=== PATIENT | female | born 1985 | race Caucasian/White ===

== ENCOUNTER → 2017-10-11 14:12 | Outpatient (CLI) | payer OTHER, SELFPAY ==
[2017-10-11 16:03] LABS: Absolute Lymphocyte Count 2.61 X10^3/ul (0.83-4.51); Absolute Neutrophil Count 4.5 X10^3/uL (2.0-7.7); Basophil# 0.02 X10^3/uL; Basophil% 0.3 % (0-1); Eosinophil# 0.08 X10^3/uL; Eosinophils% 1.1 % (0-5); Hemoglobin 12.8 g/dl (12.0-15.0); Lymphocyte # 2.61 X10^3/ul (4.0); Lymphocyte % 34.6 % (19-41); Mean Corp Hgb Conc 33.7 g/gl (32-36); Mean Corpuscular Hgb 29.7 pg (27.0-32.0); Mean Corpuscular Volume 88.2 fL (81-99); Monocyte# 0.38 X10^3/uL; Neutrophil # 4.45 X10^3/uL (2.7-7.7); Neutrophil % 58.9 % (47-70); Platelet Count 254 K/mm3 (150-450); RBC Distribution Width CV 12.1 % (11.6-14.6); RBC Distribution Width SD 38.8 fl (35.1-43.9); Red Blood Count 4.31 M/mm3 (4.2-5.4); White Blood Count 7.6 K/mm3 (4.4-11.0)
[2017-10-11 16:05] LABS: POSITIVE COUNT NO; POSITIVE DIFFERENTIAL NO; POSITIVE MORPHOLOGY NO
[2017-10-11 16:33] LABS: ALB/GLOB Ratio 1.2 RATIO (0.9-2.4); AST(SGOT) 9 U/L (15-37); Alanine Aminotransfer ALT/SGPT 21 U/L (13-56); Albumin, Serum 4.1 g/dL (3.2-5.0); Alkaline Phosphatase 78 U/L (45-117); Anion Gap 9 (5-15); BUN 21 mg/dL (7-18); BUN/Creat Ratio 25.3 RATIO (10-20); Calcium,Total 9.4 mg/dL (8.5-10.1); Chloride 108 mmol/L (98-107); Creatinine, Serum 0.83 mg/dL (0.55-1.02); EST Glomerular Filtration Rate 84 mL/min (>60); Est Glom Filt Rate - Afr Amer 102 mL/min (>60); Globulin 3.3 g/dL (2.2-4.2); Glucose 86 mg/dL (74-106); Iron 84 ug/dL (50-170); Potassium 3.8 mmol/L (3.5-5.1); Protein, Total 7.4 g/dL (6.4-8.2); Sodium Level 143 mmol/L (136-145); Thyroid Stim Hormone (TSH) 1.23 uIU/mL (0.358-3.74)
[2017-10-11 16:39] LABS: Erythrocyte Sedimentation Rate 9 mm/hr (0-20)
[2017-10-12 09:48] LABS: Vitamin B12 329 pg/mL (211-911); Vitamin D,25 Hydroxy 21.1 ng/mL (29.95-100.01)
== END ==
PROVIDERS: Family Provider Family Medicine; PCP Family Medicine; Visit Provider Family Medicine
DX: R53.83 Other fatigue (principal)
CPT/HCPCS: 36415; 80053; 82306; 82607; 83540; 84443; 85025; 85652

== ENCOUNTER → 2018-01-30 16:27 | Outpatient (CLI) | payer OTHER, SELFPAY ==
--- NOTE | 2018-01-30 16:35 | RAD_ITS ---
STUDY: X-RAY - CERVICAL SPINE REASON FOR EXAM: Female, 32 years old. Neck pain TECHNIQUE: 4 view(s) of the cervical spine were obtained. COMPARISON: None FINDINGS: Normal anterior atlantoaxial articulation. Normal odontoid process. Decreased cervical lordosis possibly due to muscle spasm or positioning artifact. Normal vertebral bodies and endplates. Normal disc space heights. Normal visualized intervertebral neuroforamina. The soft tissue structures are unremarkable. RAD/Cerv Spine 4 or 5 Views IMPRESSION: Decreased cervical lordosis otherwise normal x-ray examination of the visualized cervical spine. Electronically Signed: Charly Moreau MD at 22:50 EDT , Service support ,
== END ==
PROVIDERS: Family Provider Family Medicine; PCP Family Medicine; Visit Provider Family Medicine
DX: M54.2 Cervicalgia (principal)
CPT/HCPCS: 72050

== ENCOUNTER → 2018-08-23 13:21 | Outpatient (CLI) | payer OTHER, SELFPAY ==
[2018-08-23 14:44] LABS: Erythrocyte Sedimentation Rate 5 mm/hr (0-20)
[2018-08-23 14:47] LABS: Hematocrit 38.4 % (37-47); Hemoglobin 12.6 g/dl (12.0-15.0); Mean Corp Hgb Conc 32.8 g/gl (32-36); Mean Corpuscular Hgb 29.1 pg (27.0-32.0); Mean Corpuscular Volume 88.7 fL (81-99); Mean Platelet Vol. 10.9 fl (6.2-12.0); Platelet Count 292 K/mm3 (150-450); RBC Distribution Width CV 12.4 % (11.6-14.6); RBC Distribution Width SD 39.7 fl (35.1-43.9); Red Blood Count 4.33 M/mm3 (4.2-5.4); Scan Indicated on CBC? Y/N NO; White Blood Count 6.3 K/mm3 (4.4-11.0)
[2018-08-23 15:15] LABS: Vitamin B12 350 pg/mL (211-911)
[2018-08-23 15:18] LABS: ALB/GLOB Ratio 1.3 RATIO (0.9-2.4); Albumin, Serum 4.2 g/dL (3.2-5.0); BUN 17 mg/dL (7-18); BUN/Creat Ratio 21.2 RATIO (10-20); EST Glomerular Filtration Rate 87 mL/min (>60); Est Glom Filt Rate - Afr Amer 105 mL/min (>60); Globulin 3.2 g/dL (2.2-4.2); Glucose 89 mg/dL (74-106); Protein, Total 7.4 g/dL (6.4-8.2)
[2018-08-23 15:19] LABS: AST(SGOT) 18 U/L (15-37); Alanine Aminotransfer ALT/SGPT 33 U/L (13-56); Alkaline Phosphatase 98 U/L (45-117); Anion Gap 9 (5-15); CPK Total, Creatine Kinase 344 U/L (26-192); CRP 6.92 mg/L (0.0-3.0); Calcium,Total 8.9 mg/dL (8.5-10.1); Chloride 106 mmol/L (98-107); Ferritin 152 ng/mL (8-252); Iron 93 ug/dL (50-170); Magnesium 2.2 mg/dL (1.6-2.6); Potassium 3.8 mmol/L (3.5-5.1); Rheumatoid Factor < 10.0 IU/mL (<15); Sodium Level 142 mmol/L (136-145); Thyroid Stim Hormone (TSH) 0.99 uIU/mL (0.358-3.74)
[2018-08-25 11:29] LABS: ANTINUCLEAR ANTIBODIES DIRECT Negative (Negative)
[2018-08-28 16:41] LABS: Aldolase 6.9 U/L (3.3-10.3)
--- OUTSIDE RECORDS SUMMARY | 2018-10-28 03:19 | XMS RPT_ITS ---
:1985 Author Organization OH[facility] Care Team Providers Name Role Phone ARTI KEYS, DR. DRAPER Attending Unavailable ARTI KEYS, DR. DRAPER Referring Unavailable CHARLY WU, DR. JOLLY Primary Care Unavailable Peewee Chi Attending Unavailable Peewee Chi Referring Unavailable Peewee Chi Primary Care Unavailable Peewee Chi Attending Unavailable Peewee Chi Referring Unavailable Peewee Chi Primary Care Unavailable Peewee Chi Attending Unavailable Peewee Chi Primary Care Unavailable Peewee Chi Attending Unavailable Peewee Chi Referring Unavailable Peewee Cih Primary Care Unavailable PROBLEMS PROBLEMS DATE TYPE CONDITION / CODE ATTENDING STATUS SOURCE 01/30/2018 Unknown M54.2 - Arti Active [place] [facility] / Peewee [facility] M54.2(ICD-10) Hospital Repository PROCEDURES PROCEDURES No Procedure Records FoundRESULTS RESULTS BRAIN WITHOUT Observed: 08/29/2018 Status: F Source: [place] CONTRAST 6:45 AM [facility] REPOSITORY [facility] Imaging Services [address] [place] [address] Brain without Contrast MR#: [id number] Acct: [id number] Name: ORIN GARZA Santa Rep #: [id number] : 1985 F 33 From: Annika Staton PCP: Peewee Chi MD Status: REG CLI Study: Brain without Contrast Date of Exam: 08/29/18 Exam# [id number] Ordering Dr: Vahe Chi MD STUDY: MRI BRAIN WITHOUT CONTRAST REASON FOR EXAM: Female, 33 years old. dizziness, ARM NUMBNESS, OCCULAR MIGRAINES, NERVE PAIN, MEMORY LOSS TECHNIQUE: Standardized multiplanar fat and water weighted pulse sequences were obtained. COMPARISON: Mar 31 2011 FINDINGS: Normal size of the ventricles and extra-axial spaces for the patient's age. Normal white matter tracts of the supratentorial brain. Normal bilateral basal ganglia. Normal thalami. There is no extra-axial fluid accumulation. Normal flow voids within the major intracranial circulation suggesting patency by spin echo criteria. Normal sella turcica, pituitary gland, infundibular stalk, optic chiasm and hypothalamus. Normal tectal plate and pineal gland. Normal midbrain, michael and medulla. Normal cerebellum. Normal basal cisterns. Normal bilateral temporal bones. Normal bilateral internal auditory canals. No demonstrated orbital abnormality, within the constraints of a routine brain study. Normal visualized paranasal sinuses. Normal calvarium and skull base. Normal visualized soft tissue structures. Normal visualized upper cervical spine. MRI/Brain without Contrast IMPRESSION: Normal unenhanced MRI of the brain. Electronically Signed: Annika Staton MD at 8:07 EST Tel , Service support , CC: Peewee Chi MD Handbag Stitcher: Signed ERYTHROCYTE SED RATE Collected: 08/23/2018 Status: F Source: [place] 1:26 PM [facility] REPOSITORY TYPE CODE TESTS RESULT OUT OF RANGE REFERENCE UNITS LAB L102.0000 0-20 mm/hr Normal SED RATE 5 Performed By: #### L101.9900, L100.0500, L503.0105, L506.1000, L500.4050, L501.3620, L501.5200, L501.9520, L503.6150, L503.6550, L505.7010 #### [facility] [place], [address] #### L3100.5475, L3100.7000 #### [facility] (refer to report for specific site) refer to report for address and phone number CBC-COMPLETE BLOOD CNT Collected: 08/23/2018 Status: F Source: [place] NO DIFF 1:26 PM [facility] REPOSITORY TYPE CODE TESTS RESULT OUT OF RANGE REFERENCE UNITS LAB L100.1000 4.4-11.0 K/mm3 Normal WBC 6.3 LAB L100.1200 4.2-5.4 M/mm3 Normal RBC 4.33 LAB L100.1300 12.0-15.0 g/dl Normal HGB 12.6 LAB L100.1400 37-47 % Normal HCT 38.4 LAB L100.1500 81-99 fL Normal MCV 88.7 LAB L100.1600 27.0-32.0 pg Normal MCH 29.1 LAB L100.1700 32-36 g/gl Normal MCHC 32.8 LAB L100.1810 11.6-14.6 % Normal RDW CV 12.4 LAB L100.1820 35.1-43.9 fl Normal RDW SD 39.7 LAB L100.1900 150-450 K/mm3 Normal PLT 292 LAB L100.2000 6.2-12.0 fl Normal MPV 10.9 Performed By: #### L101.9900, L100.0500, L503.0105, L506.1000, L500.4050, L501.3620, L501.5200, L501.9520, L503.6150, L503.6550, L505.7010 #### [facility] [address] [facility] [place], [place], [id number] #### L3100.5475, L3100.7000 #### [facility] (refer to report for specific site) refer to report for address and phone number VITAMIN B12 Collected: 08/23/2018 Status: F Source: [place] 1:26 PM [facility] REPOSITORY TYPE CODE TESTS RESULT OUT OF RANGE REFERENCE UNITS LAB L503.0105 211-911 pg/mL Normal Vitamin B12 350 Performed By: #### L101.9900, L100.0500, L503.0105, L506.1000, L500.4050, L501.3620, L501.5200, L501.9520, L503.6150, L503.6550, L505.7010 #### [facility] [address] [facility] [place], [place], [address] #### L3100.5475, L3100.7000 #### [facility] (refer to report for specific site) refer to report for address and phone number VITAMIN D,25 HYDROXY Collected: 08/23/2018 Status: F Source: [place] 1:26 PM [facility] REPOSITORY TYPE CODE TESTS RESULT OUT OF REFERENCE UNITS RANGE LAB L506.1000 29.95-100.01 ng/mL Low Vitamin D 17.0 25-OH Result Comment: Vitamin D 25(OH) Status Range Deficiency <20 ng/mL (50nmol/L) Insuffciency 20 - 30 ng/mL (50 - 75 nmol/L) Sufficiency 30 - 100 ng/mL (75 - 250 nmol/L) Toxicity >100 ng/mL (>250 nmol/L) Performed By: #### L101.9900, L100.0500, L503.0105, L506.1000, L500.4050, L501.3620, L501.5200, L501.9520, L503.6150, L503.6550, L505.7010 #### [facility] [address] [place], [address] #### L3100.5475, L3100.7000 #### [facility] (refer to report for specific site) refer to report for address and phone number COMPREHENSIVE METABOLIC Collected: 08/23/2018 Status: F Source: [facility] 1:26 PM [facility] REPOSITORY TYPE CODE TESTS RESULT OUT OF RANGE REFERENCE UNITS LAB L501.0100 74-106 mg/dL Normal GLU 89 Result Comment: Please note revised GLUCOSE reference range effective 2017. LAB L501.1000 7-18 mg/dL Normal BUN 17 LAB L501.1100 0.55-1.02 mg/dL Normal CREAT,SERUM 0.80 Result Comment: The validity of the calculated GFR AND GFRAA in patients over 70 years has not been determined. Clinical correlation is essential. LAB L501.1110 >60 mL/min Normal EST GFR 87 Result Comment: Non- GFR Calc LAB L501.1115 >60 mL/min Normal EST GFR - AA 105 Result Comment: GFR Calc LAB L501.1300 10-20 RATIO High BUN/CRE 21.2 LAB L501.1500 6.4-8.2 g/dL T Normal PROT 7.4 LAB L501.1800 3.2-5.0 g/dL Normal ALB 4.2 LAB L501.1950 2.2-4.2 g/dL Normal GLOB 3.2 LAB L501.2000 0.9-2.4 RATIO Normal A/G 1.3 LAB L501.2200 8.5-10.1 mg/dL CA Normal 8.9 LAB L501.4100 15-37 U/L Normal AST 18 LAB L501.4305 45-117 U/L Normal ALK P 98 LAB L501.4405 13-56 U/L Normal ALT 33 LAB L501.4600 0.20-1.00 mg/dL T Normal BILI 0.50 LAB L501.5300 136-145 mmol/L NA Normal 142 LAB L501.5600 3.5-5.1 mmol/L K Normal 3.8 LAB L501.5900 98-107 mmol/L CL Normal 106 LAB L501.6100 21.0-32.0 mmol/L Normal CO2 27.0 LAB L501.6200 5-15 Normal GAP 9 Performed By: #### L101.9900, L100.0500, L503.0105, L506.1000, L500.4050, L501.3620, L501.5200, L501.9520, L503.6150, L503.6550, L505.7010 #### [facility] [address] [facility] [place], [address] #### L3100.5475, L3100.7000 #### [facility] (refer to report for specific site) refer to report for address and phone number CPK TOTAL, CREATINE Collected: 08/23/2018 Status: F Source: [place] KINASE 1:26 PM [facility] REPOSITORY TYPE CODE TESTS RESULT OUT OF RANGE REFERENCE UNITS LAB L501.3620 26-192 U/L High CPK TOTAL 344 Performed By: #### L101.9900, L100.0500, L503.0105, L506.1000, L500.4050, L501.3620, L501.5200, L501.9520, L503.6150, L503.6550, L505.7010 #### [facility] [address] [facility] [place], [address] #### L3100.5475, L3100.7000 #### [facility] (refer to report for specific site) refer to report for address and phone number MAGNESIUM Collected: 08/23/2018 Status: F Source: [place] 1:26 PM [facility] REPOSITORY TYPE CODE TESTS RESULT OUT OF RANGE REFERENCE UNITS LAB L501.5200 1.6-2.6 mg/dL Normal MG 2.2 Performed By: #### L101.9900, L100.0500, L503.0105, L506.1000, L500.4050, L501.3620, L501.5200, L501.9520, L503.6150, L503.6550, L505.7010 #### [facility] [address] [place] [address], [address] #### L3100.5475, L3100.7000 #### [facility] (refer to report for specific site) refer to report for address and phone number THYROID STIM HORMONE Collected: 08/23/2018 Status: F Source: [place] (TSH) 1:26 PM [facility] REPOSITORY TYPE CODE TESTS RESULT OUT OF RANGE REFERENCE UNITS LAB L501.9520 0.358-3.74 uIU/mL Normal TSH 0.99 Performed By: #### L101.9900, L100.0500, L503.0105, L506.1000, L500.4050, L501.3620, L501.5200, L501.9520, L503.6150, L503.6550, L505.7010 #### [facility] [address] [place] [address], [address] #### L3100.5475, L3100.7000 #### [facility] (refer to report for specific site) refer to report for address and phone number IRON Collected: 08/23/2018 Status: F Source: [place] 1:26 PM [facility] REPOSITORY TYPE CODE TESTS RESULT OUT OF RANGE REFERENCE UNITS LAB L503.6150 50-170 ug/dL Normal IRON 93 Performed By: #### L101.9900, L100.0500, L503.0105, L506.1000, L500.4050, L501.3620, L501.5200, L501.9520, L503.6150, L503.6550, L505.7010 #### [facility] [address] [place] [address], [address] #### L3100.5475, L3100.7000 #### [facility] (refer to report for specific site) refer to report for address and phone number FERRITIN Collected: 08/23/2018 Status: F Source: [place] 1:26 PM [facility] REPOSITORY TYPE CODE TESTS RESULT OUT OF RANGE REFERENCE UNITS LAB L503.6550 8-252 ng/mL Normal FERRITIN 152 Performed By: #### L101.9900, L100.0500, L503.0105, L506.1000, L500.4050, L501.3620, L501.5200, L501.9520, L503.6150, L503.6550, L505.7010 #### [facility] [address] [place] [address], [address] #### L3100.5475, L3100.7000 #### [facility] (refer to report for specific site) refer to report for address and phone number RHEUMATOID FACTOR Collected: 08/23/2018 Status: F Source: [place] 1:26 PM [facility] REPOSITORY TYPE CODE TESTS RESULT OUT OF RANGE REFERENCE UNITS LAB L505.7010 <15 IU/mL Normal RHEUMATOID FAC < 10.0 Performed By: #### L101.9900, L100.0500, L503.0105, L506.1000, L500.4050, L501.3620, L501.5200, L501.9520, L503.6150, L503.6550, L505.7010 #### [facility] [address] [place] [address], [address] #### L3100.5475, L3100.7000 #### [facility] (refer to report for specific site) refer to report for address and phone number ANTINUCLEAR ANTIBODIES Collected: 08/23/2018 Status: F Source: [place] DIRECT 1:26 PM [facility] REPOSITORY TYPE CODE TESTS RESULT OUT OF RANGE REFERENCE UNITS LAB L3100.5475 Negative Normal Negative SELVIN-DIRECT Result Comment: Performed at: [address] [id number] Business Law Teacher: Mir Beasley PhD, Phone: [phone] Performed By: #### L101.9900, L100.0500, L503.0105, L506.1000, L500.4050, L501.3620, L501.5200, L501.9520, L503.6150, L503.6550, L505.7010 #### [facility] [address] [place], [address] #### L3100.5475, L3100.7000 #### [facility] (refer to report for specific site) refer to report for address and phone number ALDOLASE Collected: 08/23/2018 Status: F Source: [place] 1:26 PM [facility] REPOSITORY TYPE CODE TESTS RESULT OUT OF RANGE REFERENCE UNITS LAB L3100.7000 3.3-10.3 U/L Normal ALDOLASE 2030 6.9 Result Comment: Performed at: [facility] Lab[address] [id number] Business Law Teacher: Mir Beasley PhD, Phone: [phone] Performed By: #### L101.9900, L100.0500, L503.0105, L506.1000, L500.4050, L501.3620, L501.5200, L501.9520, L503.6150, L503.6550, L505.7010 #### [facility] [address] [facility] [facility] [place], [place], [address] #### L3100.5475, L3100.7000 #### [facility] (refer to report for specific site) refer to report for address and phone number CRP Collected: 08/23/2018 Status: F Source: [place] 1:26 PM [facility] REPOSITORY TYPE CODE TESTS RESULT OUT OF RANGE REFERENCE UNITS LAB L501.6710 0.0-3.0 mg/L High 6.92 C-REACTIVE PROT Result Comment: C-Reactive Protein (CRP) provides useful information for the diagnosis, therapy and monitoring of inflammatory processes and associated diseases. For the evaluation of Relative Risk for Cardiovascular Disease, a High Sensitivity CRP (HSCRP) should be ordered. Performed By: #### L501.6710 #### [facility] [address] [place], [address] CERV SPINE 4 OR 5 Observed: 01/30/2018 Status: F Source: [place] VIEWS 4:30 PM [facility] Imaging Services [address] [place] [address] Cerv Spine 4 or 5 Views MR#: [id number] Acct: [id number] Name: ORIN GARZA Rep #: [id number] : 1985 F 32 From: Charly Moreau MD PCP: Peewee Chi MD Status: REG CLI Study: Cerv Spine 4 or 5 Views Date of Exam: 01/30/18 Exam# [id number] Ordering Dr: Vahe Chi MD STUDY: X-RAY - CERVICAL SPINE REASON FOR EXAM: Female, 32 years old. Neck pain TECHNIQUE: 4 view(s) of the cervical spine were obtained. COMPARISON: None FINDINGS: Normal anterior atlantoaxial articulation. Normal odontoid process. Decreased cervical lordosis possibly due to muscle spasm or positioning artifact. Normal vertebral bodies and endplates. Normal disc space heights. Normal visualized intervertebral neuroforamina. The soft tissue structures are unremarkable. RAD/Cerv Spine 4 or 5 Views IMPRESSION: Decreased cervical lordosis otherwise normal x-ray examination of the visualized cervical spine. Electronically Signed: Charly Moreau MD at 22:50 EDT , Service support , CC: Peewee Chi MD Handbag Stitcher: Signed CBC W/DIFF, AUTOMATED Collected: 10/11/2017 Status: F Source: [place] 2:14 PM [facility] REPOSITORY Order Comment: Order Date: 10/11/17 Order Info: 0184-1 - CBCD Order Info: 91718-9 - SED TYPE CODE TESTS RESULT OUT OF RANGE REFERENCE UNITS LAB L100.1000 4.4-11.0 K/mm3 Normal WBC 7.6 LAB L100.1200 4.2-5.4 M/mm3 Normal RBC 4.31 LAB L100.1300 12.0-15.0 g/dl Normal HGB 12.8 LAB L100.1400 37-47 % Normal HCT 38.0 LAB L100.1500 81-99 fL Normal MCV 88.2 LAB L100.1600 27.0-32.0 pg Normal MCH 29.7 LAB L100.1700 32-36 g/gl Normal MCHC 33.7 LAB L100.1810 11.6-14.6 % Normal RDW CV 12.1 LAB L100.1820 35.1-43.9 fl Normal RDW SD 38.8 LAB L100.1900 150-450 K/mm3 Normal PLT 254 LAB L100.2000 6.2-12.0 fl Normal MPV 12.0 LAB L100.2100 47-70 % Normal NEUT% 58.9 LAB L100.2200 19-41 % Normal LY% 34.6 LAB L100.2300 0-10 % Normal MONO% 5.0 LAB L100.2400 0-5 % Normal EO% 1.1 LAB L100.2500 0-1 % Normal BASO% 0.3 LAB L100.2550 0.0-0.9 % Normal IM GRAN % 0.100 Result Comment: IG% - Immature Granulocytes (promyelocytes, myelocytes and metamyelocytes) > 1% indicates that a LEFT SHIFT is Present. LAB L100.2620 2.0-7.7 X10 3/uL Normal Absolute Neut 4.5 LAB L100.2720 0.83-4.51 X10 3/ul Normal Absolute Lymph 2.61 Performed By: #### L100.0100, L500.4050, L501.9520, L503.6150, L101.9900, L503.0105, L506.1000 #### [facility] [address] [place], [address] COMPREHENSIVE METABOLIC Collected: 10/11/2017 Status: F Source: [place] ADI 2:14 PM [facility] REPOSITORY Order Comment: Order Date: 10/11/17 Order Info: 0786-1 - CMP Order Info: 3016-3 - TSH Order Info: 2498-4 - FE TYPE CODE TESTS RESULT OUT OF RANGE REFERENCE UNITS LAB L501.0100 74-106 mg/dL Normal GLU 86 Result Comment: Please note revised GLUCOSE reference range effective 2017. LAB L501.1000 7-18 mg/dL High BUN 21 LAB L501.1100 0.55-1.02 mg/dL Normal CREAT,SERUM 0.83 Result Comment: The validity of the calculated GFR AND GFRAA in patients over 70 years has not been determined. Clinical correlation is essential. LAB L501.1110 >60 mL/min Normal EST GFR 84 Result Comment: Non- GFR Calc LAB L501.1115 >60 mL/min Normal EST GFR - AA 102 Result Comment: GFR Calc LAB L501.1300 10-20 RATIO High BUN/CRE 25.3 LAB L501.1500 6.4-8.2 g/dL T Normal PROT 7.4 LAB L501.1800 3.2-5.0 g/dL Normal ALB 4.1 LAB L501.1950 2.2-4.2 g/dL Normal GLOB 3.3 LAB L501.2000 0.9-2.4 RATIO Normal A/G 1.2 LAB L501.2200 8.5-10.1 mg/dL CA Normal 9.4 LAB L501.4100 15-37 U/L Low AST 9 LAB L501.4305 45-117 U/L Normal ALK P 78 LAB L501.4405 13-56 U/L Normal ALT 21 Result Comment: Please note revised ALT reference range effective 2017. LAB L501.4600 0.20-1.00 mg/dL Normal T BILI 0.60 LAB L501.5300 136-145 mmol/L Normal NA 143 LAB L501.5600 3.5-5.1 mmol/L Normal K 3.8 LAB L501.5900 98-107 mmol/L High CL 108 LAB L501.6100 21.0-32.0 mmol/L Normal CO2 26.0 LAB L501.6200 5-15 Normal GAP 9 Performed By: #### L100.0100, L500.4050, L501.9520, L503.6150, L101.9900, L503.0105, L506.1000 #### [facility] [address] [place], [place], [id number] THYROID STIM HORMONE Collected: 10/11/2017 Status: F Source: [place] (TSH) 2:14 PM [facility] REPOSITORY Order Comment: Order Date: 10/11/17 Order Info: [id number] - CMP Order Info: 3016-3 - TSH Order Info: 2498-4 - FE TYPE CODE TESTS RESULT OUT OF RANGE REFERENCE UNITS LAB L501.9520 0.358-3.74 uIU/mL Normal TSH 1.23 Performed By: #### L100.0100, L500.4050, L501.9520, L503.6150, L101.9900, L503.0105, L506.1000 #### [facility] [address] [place], [place], [address] IRON Collected: 10/11/2017 Status: F Source: [place] 2:14 PM [facility] REPOSITORY Order Comment: Order Date: 10/11/17 Order Info: [id number] - CMP Order Info: 3016-3 - TSH Order Info: 2498-4 - FE TYPE CODE TESTS RESULT OUT OF RANGE REFERENCE UNITS LAB L503.6150 50-170 ug/dL Normal IRON 84 Performed By: #### L100.0100, L500.4050, L501.9520, L503.6150, L101.9900, L503.0105, L506.1000 #### [facility] [address] [place], [place], [address] ERYTHROCYTE SED RATE Collected: 10/11/2017 Status: F Source: [place] 2:14 PM [facility] REPOSITORY Order Comment: Order Date: 10/11/17 Order Info: 0184-1 - CBCD Order Info: 83695-7 - SED TYPE CODE TESTS RESULT OUT OF RANGE REFERENCE UNITS LAB L102.0000 0-20 mm/hr Normal SED RATE 9 Performed By: #### L100.0100, L500.4050, L501.9520, L503.6150, L101.9900, L503.0105, L506.1000 #### [facility] [address] [place], [place], [id number] VITAMIN B12 Collected: 10/11/2017 Status: F Source: [place] 2:14 PM [facility] REPOSITORY Order Comment: Order Date: 10/11/17 Order Info: 2132-9 - B12 Order Info: 31729-5 - VITD25 TYPE CODE TESTS RESULT OUT OF RANGE REFERENCE UNITS LAB L503.0105 211-911 pg/mL Normal Vitamin B12 329 Performed By: #### L100.0100, L500.4050, L501.9520, L503.6150, L101.9900, L503.0105, L506.1000 #### [place] [facility] [address] [place], [address] VITAMIN D,25 HYDROXY Collected: 10/11/2017 Status: F Source: [place] 2:14 PM [facility] REPOSITORY Order Comment: Order Date: 10/11/17 Order Info: 2132-9 - B12 Order Info: 60289-2 - VITD25 TYPE CODE TESTS RESULT OUT OF REFERENCE UNITS RANGE LAB L506.1000 29.95-100.01 ng/mL Low Vitamin D 21.1 25-OH Result Comment: Vitamin D 25(OH) Status Range Deficiency <20 ng/mL (50nmol/L) Insuffciency 20 - 30 ng/mL (50 - 75 nmol/L) Sufficiency 30 - 100 ng/mL (75 - 250 nmol/L) Toxicity >100 ng/mL (>250 nmol/L) Performed By: #### L100.0100, L500.4050, L501.9520, L503.6150, L101.9900, L503.0105, L506.1000 #### [place] [facility] [address] [place], [address] ALLERGIES ALLERGIES DATE TYPE / CODE NAME / CODE REACTION SEVERITY SOURCE Drug metoclopramide Unknown Unknown [place] 3 Allergy/050472365( HCl/[id number]([facility]) ) Hospital Repository Miscellaneous IMATREX Unknown Unknown [place] 3 Allergy/659820827( [facility] SNOMED CT) Hospital Repository ENCOUNTERS ENCOUNTERS ADMIT/DISCHARGE ACCOUNT NUMBER ADMITTING ENCOUNTER LOCATION SOURCE CLASS 08/29/2018 [id number] Ambulatory [facility] ding:MRI Repository 08/23/2018 [id number] Ambulatory [facility] ding:MTLAB Repository 02/12/2018/04/02/20 [id number] Ambulatory BBuilding:[facility] [address] Repository 01/30/2018 [id number] Ambulatory [facility] ding:MTRAD Repository 10/11/2017 [id number] [facility] ding:MFPLAB Repository PAYERS PAYERS ENCOUNTER GUARANTOR PAYER SUBSCRIBER SOURCE 08/29/2018 HAWA C Primary HAWA C [place] [id number] W Insurance:AULTCAREPol SEIGLEYDOB: [facility] icy Number: [id number], [place] [id number] Repository [address]13[address]Jut: ([phone]) Date:8720-26-95ED [phone] () [address], [place] [address]SY: 08/29/2018 Secondary NOT GIVENUNK [place] Insurance:SELF PAY [facility] Number: Effective Repository Date:2018-08-27 08/23/2018 HAWA C Primary HAWA C [place] [id number] W Insurance:AULTCAREPol SEIGLEYDOB: [facility] icy Number: [id number], [place] [id number] Repository [address]Mzt: ([phone]) Date:2003-20-24[phone] () [address], [place] [address]ID: 08/23/2018 Secondary NOT GIVENUNK [place] Insurance:SELF PAY [facility] Number: Effective Repository Date:2018-08-23 02/12/2018 ORIN Pratt [facility] SEIGLEYDOB: [facility] [id number] W [id number] Number: [id number] Repository MARKET [id number] [address] [place], [place] Date:2018-02-01 - [place], [place] [address]SAUL@ [id number] 08170Oku: [phone] ZAINABel: Name:MONITORING SPECIALIST [phone] [place] [address] ()Tel: [phone]) (PH) [phone]: ([phone] 01/30/2018 [address] Primary [address] [place] [id number] W Insurance:AULTCAREPol SeigleyDOB: [employer] icy Number: [id number], [place] [id number] Repository [address]Twn: 330) Date:2433-43-50CI [phone] () [address] [place] [phone]: 01/30/2018 Secondary NOT GIVENUNK [place] Insurance:SELF PAY [facility] Number: Effective Repository Date:2018-01-30 10/11/2017 [address] Primary [address] [place] [id number] W Insurance:AULTCAREPol SeigleyDOB: [employer] icy Number: [id number], [place] [id number] Repository [address]Htb: [phone]) Date:1327-92-11WV [phone] () [address] [place] [address]EJ: 10/11/2017 Secondary NOT GIVENUNK [place] Insurance:SELF PAY [facility] Number: Effective Repository Date:2017-10-11
== END ==
PROVIDERS: Family Provider Family Medicine; PCP Family Medicine; Referring Provider Family Medicine; Visit Provider Family Medicine
DX: R25.2 Cramp and spasm (principal); R53.1 Weakness; R20.0 Anesthesia of skin
CPT/HCPCS: 80053; 82085; 82306; 82550; 82607; 82728; 83540; 83735; 84443; 85027; 85652; 86038; 86140; 86431

== ENCOUNTER → 2018-08-29 06:38 | Outpatient (CLI) | payer OTHER, SELFPAY ==
--- NOTE | 2018-08-29 06:45 | MRI_ITS ---
STUDY: MRI BRAIN WITHOUT CONTRAST REASON FOR EXAM: Female, 33 years old. dizziness, ARM NUMBNESS, OCCULAR MIGRAINES, NERVE PAIN, MEMORY LOSS TECHNIQUE: Standardized multiplanar fat and water weighted pulse sequences were obtained. COMPARISON: Mar 31 2011 FINDINGS: Normal size of the ventricles and extra-axial spaces for the patient's age. Normal white matter tracts of the supratentorial brain. Normal bilateral basal ganglia. Normal thalami. There is no extra-axial fluid accumulation. Normal flow voids within the major intracranial circulation suggesting patency by spin echo criteria. Normal sella turcica, pituitary gland, infundibular stalk, optic chiasm and hypothalamus. Normal tectal plate and pineal gland. Normal midbrain, michael and medulla. Normal cerebellum. Normal basal cisterns. Normal bilateral temporal bones. Normal bilateral internal auditory canals. No demonstrated orbital abnormality, within the constraints of a routine brain study. Normal visualized paranasal sinuses. Normal calvarium and skull base. Normal visualized soft tissue structures. Normal visualized upper cervical spine. MRI/Brain without Contrast IMPRESSION: Normal unenhanced MRI of the brain. Electronically Signed: Annika Staton MD at 8:07 EST Tel , Service support ,
== END ==
PROVIDERS: Family Provider Family Medicine; PCP Family Medicine; Referring Provider Family Medicine; Visit Provider Family Medicine
DX: R42 Dizziness and giddiness (principal)
CPT/HCPCS: 70551

== ENCOUNTER → 2018-09-24 10:33 | Outpatient (CLI) | payer OTHER, SELFPAY ==
[2018-09-24 12:58] LABS: Vitamin B12 421 pg/mL (211-911)
[2018-09-24 12:59] LABS: Vitamin D,25 Hydroxy 21.7 ng/mL (29.95-100.01)
== END ==
PROVIDERS: Family Provider Family Medicine; PCP Family Medicine; Referring Provider Family Medicine; Visit Provider Family Medicine
DX: R25.2 Cramp and spasm (principal); E55.9 Vitamin D deficiency, unspecified; E53.8 Deficiency of other specified B group vitamins
CPT/HCPCS: 36415; 82306; 82607

== ENCOUNTER 2019-03-09 07:34 | Emergency (ER) | payer OTHER, SELFPAY ==
[2019-03-09 07:35] VITALS: BP 162/92; PULSE 94; RESP 18; TEMP 36.9; O2SAT 98; BMI 41.8
--- NOTE | 2019-03-09 07:47 | ED.DCSUM_ITS ---
History of Present Illness Chief Complaint: Ear Problem Informant: Patient, Family Onset: Days Current Severity: Moderate Narrative: Ear pain for a few days, the patient indicates she has what appears to be otitis externa she had a for a few days she saw her ENT physicians Dr. Douglass this past Sunday she is put on drops and oral antibiotics she believes she is on nonsteroidal for pain she indicates the medication she is been put on have not helped the pain has persisted, she tried calling her ENT physician multiple times there was no call back eventually she got a hold of someone told her to come to the emergency department. She is had no fever no cough she frequently receives ear infection conditions for unspecified reasons Past Medical History - Allergies and Home Meds Allergies/Adverse Reactions: Allergies adhesive Allergy (Verified 03/09/19 07:34) Rash metoclopramide HCl [From Reglan] Allergy (Verified 03/09/19 07:34) Unknown IMATREX Allergy (Uncoded 03/09/19 07:34) Unknown Primary Care Physician: Vahe Chi MD [Primary Care Provider] - Past Medical History: - - None except as above see the full note Smoking Status: Never smoker Review of Systems General: Denies: Chills, Fever, Sweats Eyes: Denies: Visual changes - bilaterally, Diplopia ENT: Reports: Right ear pain. Denies: Rhinorrhea, Sore throat Cardiovascular: Denies: Chest pain, Palpitations Respiratory: Denies: Dyspnea, Cough, Dyspnea on exertion Gastrointestinal: Denies: Abdominal pain, Nausea, Vomiting, Diarrhea, Melena, Hematochezia Genitourinary: Denies: Dysuria, Hematuria, Frequency Musculoskeletal: Denies: Back pain, Extremity Pain Skin: Denies: Rash, Wounds Neurological: Denies: Headache, Weakness, Numbness Physical Exam Vital Signs/Narrative: Vital Signs Temp Pulse Resp BP Pulse Ox 03/09/19 07:35 98.4 F 94 18 162/92 H 98 General: Well nourished, Well developed, No Acute Distress Head: Normocephalic, Atraumatic Eyes: Perrl, EOMI ENT: Moist mucous membranes, No rhinorrhea, - - She has what appears to be an otitis externa to the right canal is swollen cannot see the drum there is very minimal swelling over the anterior temporal bone no crepitance or subcu air or signs of malignant otitis the HEENT exam and her general physical exam is otherwise negative Neck: Supple, Nontender Cardiovascular: Regular rate, Regular rhythm, No murmurs Respiratory: No distress, CTA bilaterally, Chest nontender Abdomen: Soft, Nontender, Nondistended, Normal bowel sounds Back: Nontender, Normal Inspection Extremities: Nontender, No edema Skin: Normal color, No rash Neurological: Alert, Oriented x3, Cranial nerves II-XII grossly intact, Normal Strength, Normal Sensation Psychological: Normal affect, Normal Mood Diagnostic/Tx/Re-eval - Medical Decision Making I had a long conversation the patient her father the patient began to get emotionally upset crying and screaming that nobody would take care of her that I was being mean to her she expressed frustration as to why the medicines were not working and why her physicians would not call her back. I explained to her that we are trying to determine what medication she is on the course of her care etc. after she calmed down I explained it would talk to Dr. Douglass, I spoke with Dr. Douglass went through the case in detail indicates he is been quality control representative all weekend and he is never heard that the patient had been trying to reach him. He recalls the patient had otitis media with perforation, he asked that she be given Rocephin IM, started on Ceftin ear 300 mg twice daily he indicates he did not prescribe the eardrops but wants to make sure what those are and who prescribed them and I will review that with her she is he is okay with her receiving a short course of [place] as a rescue medicine and seeing her in the office in a day or 2 discussed all this the patient and she agrees, with regards to the eardrops if the prescription what appears to be ofloxacin that her daughter had that she began using when she developed the ear issue Home stable Final impression right otitis externa, right otitis media ED Disposition - Plan for ED Patient: Diagnosis: Ear infection Instructions: RUPTURED TM, Infected (Adult) Prescriptions: Cefdinir 300 mg PO BID 10 Days cap Prescription Printed Naproxen [Naprosyn] 500 mg PO BID PRN #20 tab Prescription Printed Hydrocodone Bitart/Apap 5-325 [[place] 5MG-325MG] 1 tab PO Q4H PRN PRN 2 Days #10 tab PRN Reason: Pain Prescription Printed Referrals: Vahe Chi MD [Primary Care Provider] -
[2019-03-09] MEDS: Ondansetron 8 MG Tablet PO (08:10)
[2019-03-09] MEDS: morphine 8 MG/ML Syringe SC (08:10)
[2019-03-09] MEDS: Ketorolac 60 MG/2 ML Vial IM (08:10)
[2019-03-09] MEDS: Ceftriaxone 1 GM Vial IM (08:24)
== END 2019-03-09 09:01 | disposition home or self-care (01) ==
LOC: ED 08:17
PROVIDERS: Emergency Provider Emergency Medicine; Family Provider Family Medicine; PCP Family Medicine
DX: H60.91 Unspecified otitis externa, right ear (principal); H66.91 Otitis media, unspecified, right ear; Z79.899 Other long term (current) drug therapy; Z88.8 Allergy status to other drugs, medicaments and biological substances
CPT/HCPCS: 96372; 99283

== ENCOUNTER → 2019-04-02 16:19 | Outpatient (CLI) | payer OTHER, SELFPAY ==
[2019-03-09 07:35] VITALS: BMI 41.8
[2019-04-02 17:47] LABS: ALB/GLOB Ratio 1.2 RATIO (0.9-2.4); AST(SGOT) 26 U/L (15-37); Alanine Aminotransfer ALT/SGPT 51 U/L (13-56); Albumin, Serum 4.1 g/dL (3.2-5.0); Alkaline Phosphatase 119 U/L (45-117); Anion Gap 6 (5-15); BUN 15 mg/dL (7-18); BUN/Creat Ratio 15.8 RATIO (10-20); Calcium,Total 8.6 mg/dL (8.5-10.1); Chloride 110 mmol/L (98-107); Cholesterol 235 mg/dL (200); Creatinine, Serum 0.95 mg/dL (0.55-1.02); EST Glomerular Filtration Rate 71 mL/min (>60); Est Glom Filt Rate - Afr Amer 86 mL/min (>60); Globulin 3.5 g/dL (2.2-4.2); Glucose 93 mg/dL (74-106); High Density Lipoprotein 49 mg/dL; Potassium 3.9 mmol/L (3.5-5.1); Protein, Total 7.6 g/dL (6.4-8.2); Sodium Level 141 mmol/L (136-145); Triglycerides 231 mg/dL; Very Low Density Lipoprotein 46 mg/dL (5-40)
[2019-04-02 17:52] LABS: Vitamin B12 397 pg/mL (211-911); Vitamin D,25 Hydroxy 22.6 ng/mL (29.95-100.01)
== END ==
PROVIDERS: Family Provider Family Medicine; PCP Family Medicine; Referring Provider Family Medicine; Visit Provider Family Medicine
DX: R25.2 Cramp and spasm (principal); Z13.220 Encounter for screening for lipoid disorders; E53.8 Deficiency of other specified B group vitamins; E55.9 Vitamin D deficiency, unspecified
CPT/HCPCS: 36415; 80053; 80061; 82306; 82607

== ENCOUNTER → 2022-06-03 | Outpatient (CLI) | payer OTHER, SELFPAY ==
[2022-06-03 16:52] LABS: Amphetamine Urine VISTA NEGATIVE (<1000 ng/mL); Barbiturate Urine VISTA NEGATIVE (< 200 ng/mL); Benzodiazepine Urine VISTA NEGATIVE (< 200 ng/mL); Cocaine Urine VISTA NEGATIVE (< 300 ng/mL); Ecstacy Urine VISTA NEGATIVE (< 500 ng/mL); Methadone Urine VISTA NEGATIVE (< 300 ng/mL); PCP Urine VISTA NEGATIVE (< 25 ng/mL); THC Urine VISTA NEGATIVE (< 50 ng/mL); Vista UDS pH Range 6
== END | disposition home or self-care (01) ==
PROVIDERS: PCP Family Medicine; Visit Provider Internal Medicine Pulmonary Disease
DX: G47.10 Hypersomnia, unspecified (principal)
CPT/HCPCS: 80307

== ENCOUNTER 2022-07-13 16:32 | Emergency (ER) | payer OTHER, SELFPAY ==
[2022-07-13 16:34] VITALS: BP 175/96; PULSE 88; RESP 15; TEMP 36.4; O2SAT 99; BMI 38.6
--- NOTE | 2022-07-13 17:16 | CT_ITS ---
EXAM: CT HEAD WITHOUT AND WITH INTRAVENOUS CONTRAST CLINICAL INDICATION: headache -- r/o aneurysm TECHNIQUE: Multiple axial images were obtained of the head without and with intravenous contrast. This CT exam was performed using one or more of the following dose reduction techniques: automated exposure control, adjustment of the mA and/or kV according to patient size, and/or use of iterative reconstruction technique. This report was created using [employer] report generation technology. CONTRAST: IV 100mL Isovue-370 COMPARISON: 03/27/2013 FINDINGS: BRAIN AND EXTRA-AXIAL SPACES: Unremarkable. No intra- or extra-axial hemorrhage. No evidence of acute infarct. No intracranial mass or mass effect. There is preservation of the osullivan/white matter interface. Posterior fossa structures are unremarkable. Ventricles are appropriate for age. No hydrocephalus. Basal cisterns are patent. BONES/JOINTS: Unremarkable. No discrete lytic or blastic abnormalities. SINUSES: Unremarkable as visualized. Clear. MASTOID AIR CELLS: Unremarkable. Clear. ORBITS: Visualized globes, extraocular muscles, optic nerves and retrobulbar fat appear unremarkable. CT/CTA Head W/WO Contrast IMPRESSION: Negative head/brain CT without and with intravenous contrast. Electronically Signed: Ge Ace MD at 18:13 EST ,
--- NOTE | 2022-07-13 17:18 | EX.ED.VIS.HA ---
HPI History of Present Illness Chief Complaint: Headache Informant: patient Narrative Narrative: Patient presents 8 days persistent waxing waning generalized headache. Occasional nausea. Symptoms started after orgasm. Denies head trauma. History of migraines however this feels different. She states occasional neck pain. Using Tylenol last dose this morning with mild improvement symptoms currently symptoms is a 5. No visual changes. History of narcolepsy on medications. No anticoagulation medications. History of hysterectomy. History of lumbar fusion in 2009. Per mother patient has been forgetful with short-term memory loss since this started. She would not recall what she did during discussion. Grandfather history of cerebral aneurysm. Father history of thoracic aneurysm. Prior similar symptoms: No PFSH PFSH Home Medications armodafinil 150 mg tablet 150 mg PO DAILY 03/09/19 [History Last Taken Unknown] duloxetine 30 mg capsule,delayed release 30 mg PO DAILY 03/09/19 [History Last Taken Unknown] naproxen 500 mg tablet 500 mg PO BID PRN #20 tabs 03/09/19 [Rx Last Taken Unknown] Allergy/AdvReac Type Severity Reaction Status Date / Time adhesive Allergy Rash Verified 07/13/22 16:34 metoclopramide HCl Allergy Unknown Verified 07/13/22 16:34 [From Reglan] sumatriptan [From Imitrex] Allergy NEEDS Verified 07/13/22 16:34 FOLLOW-UP Social History Smoking Status: Never smoker ROS ROS ED Constitutional Constitutional ED: Denies chills, fever(s) or sweats Eyes Eyes: Denies change in vision ENT ENT ED: Denies dysphagia or sore throat Cardiovascular Cardiovascular: Denies chest pain, leg edema, palpitations or racing heartbeat Respiratory/Chest Respiratory/Chest: Denies cough, dyspnea or dyspnea on exertion Gastrointestinal Gastrointestinal: Denies abdominal pain, diarrhea, nausea or vomiting Genitourinary Genitourinary ED: Denies dysuria, hematuria or urinary frequency Musculoskeletal Musculoskeletal: Denies back pain, extremity pain or neck pain Integumentary Denies rash or wounds Neurologic Neurologic: Reports headache(s); Denies paresthesias or weakness EXAM Physical Exam Const Vital Signs: 07/13/22 16:34 07/13/22 21:23 Temperature 97.6 F L 97.8 F Temperature Source Temporal Pulse Rate 88 78 Respiratory Rate 15 16 Blood Pressure 175/96 H 134/78 H Blood Pressure Mean 122 Pulse Ox 99 99 Oxygen Delivery Method Room Air Positive well nourished and well developed General Appearance ED: well developed and NAD HEENT Reports moist mucous membranes normocephalic and atraumatic Eyes PERRL, EOMs intact bilaterally and conjunctivae normal General Eye ED: Yes normal appearance of both eyes Neck no lymphadenopathy, supple and no meningeal signs General: Negative for tenderness Chest Wall Chest: Negative for tenderness Resp normal respiratory effort and normal air movement Effort and Inspection: symmetric chest movement; Negative for respiratory distress Cardio regular rate, regular rhythm and no murmurs Peripheral Pulses: pulses 2+ throughout GI normal to inspection, nondistended, normoactive bowel sounds and non-tender Palpation: Negative for guarding or rebound tenderness present Back/Spine no CVA tenderness and no thoracic nor lumbar tenderness Back/Spine Narrative: Midline scar lower lumbar spine. Extremity normal to inspection General Extremety ED: Negative for edema or tenderness General Extremity: Negative for edema Neuro oriented x3, CN's II-XII intact bilaterally and no sensory deficits noted Sensorium / Orientation: awake and alert Skin no rashes or lesions noted and no wounds MDM MDM MDM Narrative Medical decision making narrative: Patient no focal neurological deficits. Headache post orgasm. 8 days of symptoms. Concerns for subarachnoid hemorrhage causing her headache with her history. Declines any pain medication at this time. Labs will be drawn CT head along with CT angiograms for evaluation. Patient history of lumbar fusion. CT brain negative angiogram without aneurysms. Therefore less likely subarachnoid component with no aneurysms. She later requested medicine she was treated with Reglan and Benadryl. Initial discussion with Reglan she states she had agitated likely from extraparametal effects. When given slowly she developed slight symptoms improve additional Benadryl for a total of 50 mg IV. Reevaluation headache improved. She will follow-up as an outpatient with return precautions. All questions were answered. Lab Data Labs: Laboratory Results - last 24 hr 07/13/22 07/13/22 07/13/22 17:25 17:25 17:25 WBC 4.9 RBC 5.07 Hgb 15.4 H Hct 44.1 MCV 87.0 MCH 30.4 MCHC 34.9 RDW Std Deviation 37.6 RDW Coeff of Kamar 11.8 Plt Count 308 MPV 10.4 Immature Gran % (Auto) 0.200 Neut % (Auto) 30.9 L Lymph % (Auto) 57.2 H [place] % (Auto) 8.4 Eos % (Auto) 2.9 Baso % (Auto) 0.4 Absolute Neuts (auto) 1.5 L Absolute Lymphs (auto) 2.79 Nucleated RBC % 0 PT 13.1 INR 1.0 APTT 34.0 Sodium 140 Potassium 3.8 Chloride 106 Carbon Dioxide 27.0 Anion Gap 7 BUN 10 Creatinine 0.96 Estim Creat Clear Calc 68.61 Est GFR (MDRD) Af Amer 84 Est GFR (MDRD) Non-Af 69 BUN/Creatinine Ratio 10.4 Glucose 106 Calcium 9.3 Radiography Diagnostic Testing: Clinical Impression(s) from Imaging Studies Head CTA 07/13/22 17:16 IMPRESSION: Negative head/brain CT without and with intravenous contrast. Electronically Signed: Ge Ace MD at 18:13 EST , ADDENDUM: 07/13/22 1855 IMPRESSION: undefined Discharge Plan Triage Chief Complaint: Headache ED Provider: Jeffrey Haines Dx/Rx/DC Orders Clinical Impression: Headache, History of migraine Instructions: ED Headache Unspecified Prescriptions: No Action naproxen 500 MG tablet 500 mg PO BID PRN Qty: 20 0RF duloxetine 30 MG capsule 30 mg PO DAILY armodafinil 150 MG tablet 150 mg PO DAILY Primary Care Provider: Cora Wu Referrals: Cora Wu DO [Primary Care Provider] - 3-5 Days Activity Restrictions/Additional Instructions: CT angiogram is negative for aneurysm. Follow-up with your doctor. Return of any worsening symptoms. Disposition Disposition: Home, Self Care Discharge Date/Time: 07/13/22 21:24
[2022-07-13 17:42] LABS: Absolute Lymphocyte Count 2.79 X10^3/uL (0.83-4.51); Absolute Neutrophil Count 1.5 X10^3/uL (2.0-7.7); Basophil# 0.02 X10^3/uL; Basophil% 0.4 % (0-1); Eosinophil# 0.14 X10^3/uL; Eosinophils% 2.9 % (0-5); Hematocrit 44.1 % (37-47); Hemoglobin 15.4 g/dL (12.0-15.0); Lymphocyte # 2.79 X10^3/ul (0.83-4.51); Lymphocyte % 57.2 % (19-41); Mean Corp Hgb Conc 34.9 g/dL (32-36); Mean Corpuscular Hgb 30.4 pg (27.0-32.0); Mean Platelet Vol. 10.4 fl (6.2-12.0); Monocyte# 0.41 X10^3/uL; Monocyte% 8.4 % (0-10); NRBC Flagged by Analyzer 0 % (0-5); Neutrophil # 1.51 X10^3/uL (2.7-7.7); Neutrophil % 30.9 % (47-70); Platelet Count 308 K/mm3 (150-450); RBC Distribution Width CV 11.8 % (11.6-14.6); RBC Distribution Width SD 37.6 fl (35.1-43.9); Red Blood Count 5.07 M/mm3 (4.2-5.4); White Blood Count 4.9 K/mm3 (4.4-11.0)
[2022-07-13 17:52] LABS: Prothrombin Time (Protime)PT. 13.1 SECONDS (11.7-14.9)
[2022-07-13 17:56] LABS: Anion Gap 7 (5-15); BUN 10 mg/dL (7-18); BUN/Creat Ratio 10.4 RATIO (10-20); Calcium,Total 9.3 mg/dL (8.5-10.1); Chloride 106 mmol/L (98-107); Creatinine, Serum 0.96 mg/dL (0.55-1.02); EST Glomerular Filtration Rate 69 mL/min (>60); Est Glom Filt Rate - Afr Amer 84 mL/min (>60); Estimated Creatinine Clearance 68.61 ml/min; Glucose 106 mg/dL (74-106); Potassium 3.8 mmol/L (3.5-5.1); Sodium Level 140 mmol/L (136-145)
[2022-07-13] MEDS: 0.9% Normal Saline 1,000 ML 999 ML IV (19:22)
[2022-07-13] MEDS: DiphenhydrAMINE 50 MG/ML Syringe 25 MG IV ×2 (19:24→19:36)
[2022-07-13] MEDS: Metoclopramide 10 MG/2 ML Vial IV (19:24)
[2022-07-13 21:23] VITALS: BP 134/78; PULSE 78; RESP 16; TEMP 36.6; O2SAT 99
== END 2022-07-13 21:24 | disposition home or self-care (01) ==
PROVIDERS: Emergency Provider Emergency Medicine; PCP Internal Medicine; Visit Provider Emergency Medicine
DX: R51.9 Headache, unspecified (principal)
CPT/HCPCS: 70496; 80048; 85025; 85610; 85730; 96361; 96374; 96375; 99283; J7030; Q9967

== ENCOUNTER 2024-03-19 06:50 | Emergency (ER) | payer OTHER, SELFPAY ==
[2024-03-19 06:51] VITALS: BP 155/91; PULSE 71; RESP 11; TEMP 36.2; O2SAT 97; BMI 39.2
--- NOTE | 2024-03-19 07:12 | EX.ED.DYSGE1 ---
HPI History of Present Illness Chief Complaint: Hypertension [facility] Medical History (Updated 03/21/23 @ 14:[address] Deonna Tineo MD) Asthma Narcolepsy Home Medications ?Medication ?Instructions ?Recorded ?Last Taken ?Type duloxetine 30 mg capsule,delayed 30 mg PO DAILY 03/09/19 Unknown History release naproxen 500 mg tablet 500 mg PO BID PRN #20 tabs 03/09/19 Unknown Rx modafinil 200 mg tablet 200 mg PO DAILY 03/21/23 Unknown History sodium, calcium, magnesium, 1.8 g PO BID 03/21/23 Unknown History potassium oxybates 0.5 gram/mL oral soln (Xywav) amlodipine 10 mg tablet (Norvasc) 10 mg PO DAILY #30 tabs 03/19/24 Unknown Rx Allergy/AdvReac Type Severity Reaction Status Date / Time adhesive Allergy Rash Verified 03/19/24 06:54 metoclopramide HCl (From Allergy Unknown Verified 03/19/24 06:54 Reglan) sumatriptan (From Imitrex) Allergy NEEDS Verified 03/19/24 06:54 FOLLOW-UP Family History (Updated 03/21/23 @ 14:15 by Natalie Guerra) Father Hypertension Surgical History (Updated 03/21/23 @ 14:15 by Natalie Guerra) History of ankle surgery History of 2 sections History of fusion of lumbar spine History of hysterectomy Social History Smoking Status: Never smoker EXAM Physical Exam Const Vital Signs: 03/19/24 06:51 03/19/24 08:23 Temperature 97.1 F L Temperature Source Temporal Pulse Rate 71 Respiratory Rate 11 L Blood Pressure 155/91 H 150/105 H Blood Pressure Mean 112 120 Pulse Ox 97 Oxygen Delivery Method Room Air MDM MDM MDM Narrative Medical decision making narrative: HISTORY OF PRESENT ILLNESS: 38-year-old [id number] female presents concern for elevated blood pressure. She states I do not feel right. No she started 5 mg of Norvasc approxi-1 week ago after having an elevated blood pressure of 160/110 at an outpatient office visit. She notes a mild headache, she notes symptoms of reflux and burning in her epigastrium. Denies chest pain or shortness of breath. She denies focal weakness numbness or loss sensation. She notes she is no longer on Provigil. She denies any other stimulant such as caffeine tea. Denies methamphetamine or cocaine abuse. Denies family or personal history of brain aneurysms or connective tissue diseases. The patient denies recent surgery in the last 4 weeks or immobilization in the last 3 days, denies previous diagnosis of DVT or PE, hemoptysis, unilateral leg swelling or malignancy with treatment the last 6 months or palliative. No estrogen use noted. Patient denies sudden onset of pain, no tearing sensation, no migratory symptoms, no new numbness, weakness or loss of sensation. Patient denies family history or personal history of Connective tissue disorders (Marfan's Syndrome, Mark Danlos etc) REVIEW OF SYSTEMS: Pertinent positives: Elevated blood pressure Pertinent negatives: Chest pain, headache, shortness of breath, leg swelling, decreased urinary output PHYSICAL EXAM: Nursing triage notes reviewed, Vital signs reviewed Constitutional: please see mdm HENT: MMM Eyes: Pupils equal round and reactive to light, Extraocular muscles intact Neck: No stridor, no JVD, full neck ROM Lungs: Clear to auscultation, No wheezing or rales. No increased work of breathing, no conversational dyspnea, no accessory muscle use, no nasal flaring. No respiratory distress noted Heart: Regular rate and rhythm, No murmurs, No rubs and No gallops, 2+ distal pulses (radial, femoral, posterior tibial) in all extremities Abdomen: Soft, there is no tenderness, rigidity, rebound or guarding, no obvious peritoneal signs, no palpable pulsatile abdominal masses, no auscultated abdominal bruit : No CVAT Extremities: No edema Neuro: No focal neurological deficits, cranial nerves II through XII intact, 5/5 strength in all extremities. Intact sensation to light touch in all extremities, 2+ reflexes bilateral patella tendons. Normal gait. No ataxia. Skin: No rash or lesions noted MEDICAL DECISION MAKING: Chief Complaint: Elevated blood pressure External records reviewed: Imaging reviewed: CTA of the head from 2021 shows patent vessels, no ICH, no infarct or mass Factors affecting care: Asthma, narcolepsy Social determinants of health: Denies cocaine or methamphetamine use History obtained from others: n patient's family Consults: none [facility] Narrative: Patient was initially hypertensive with a blood pressure 155/91, otherwise afebrile and nontoxic-appearing. Exam without focal cardiopulmonary normalities. Without focal neurologic deficits. Without stigmata of CHF, VTE or aortic dissection. I considered the following differential diagnosis: Endorgan damage secondary to elevated blood pressure (ACS, BASHIR, ICH, proteinuria) I obtained a broad lab and imaging workup to further elucidate etiology of the patient's complaints. I gave 500 cc bolus for rehydration. ALL IMAGES (IF OBTAINED) HAVE BEEN PERSONALLY REVIEWED AND INTERPRETED BY MYSELF. EKG with normal sinus rhythm, left axis deviation, normal intervals, no STEMI CBC without leukocytosis, severe anemia, no thrombocytopenia. BMP without evidence of significant electrolyte abnormalities, no anion gap, no acute kidney injury. LFTs show no evidence of hepatobiliary pathology. High-sensitivity troponin is negative, no evidence of myocardial ischemia I have personally reviewed the patient's chest x-ray. Chest x-ray is unremarkable for pulmonary edema, pneumothorax, CT scan of the head shows no evidence of obvious recurrent abnormality, specifically ICH, mass EKG with normal sinus rhythm, left axis deviation, normal intervals, no STEMI Urinalysis shows no evidence of urinary inflammation suggestive of UTI. No significant proteinuria to suggest hypertensive nephropathy. Upon reassessment patient blood pressure still elevated 150/105 will give an additional 5 mg of Norvasc and increase her home Norvasc from 5 to 10 mg. The synthesis of the patient history, exam, labs images suggest elevated blood pressure. No signs of endorgan damage. Patient is appropriate for discharge home with increased dose of Norvasc from 5 to 10 mg. Prescription written for 30 days. Prior PCP follow-up was discussed. The patient and/or family, caregivers express understanding. The patient and/or family, caregivers agrees with the plan. Shared decision making: I will have a discussion with the patient and or visitors regarding risk/benefits of further testing or admission. They will be made aware of of the risk/benefits inherent in this decision they will be given the opportunity to voice understanding. Total critical care time today provided was at least 0 minutes. This excludes separately billable procedures. Critical care time (if documented) is secondary to the patient having high probability of clinically significant/life threatening deterioration in the patient's condition which required my urgent intervention. Impression: 1. Elevated blood pressure 2. History of hypertension Dispo: Discharge home This note was generated with [employer]BestThingsation software. It may contain incorrect words, spelling, and punctuation that were not noted in review of the chart prior to signing. Lab Data Labs: Laboratory Results - last 24 hr 03/19/24 03/19/24 07:33 08:22 WBC 7.8 RBC 5.01 Hgb 14.6 Hct 44.0 MCV 87.8 MCH 29.1 MCHC 33.2 RDW Std Deviation 40.2 RDW Coeff of Kamar 12.4 Plt Count 317 MPV 10.5 Immature Gran % (Auto) 0.100 Neut % (Auto) 51.6 Lymph % (Auto) 39.0 [place] % (Auto) 6.7 Eos % (Auto) 2.1 Baso % (Auto) 0.5 Absolute Neuts (auto) 4.0 Absolute Lymphs (auto) 3.02 Nucleated RBC % 0 Sodium 141 Potassium 4.2 Chloride 108 H Carbon Dioxide 29.0 Anion Gap 4 L BUN 10 Creatinine 0.90 Estim Creat Clear Calc 99.28 Est GFR (MDRD) Af Amer 89 Est GFR (MDRD) Non-Af 73 BUN/Creatinine Ratio 11.1 Glucose 108 H Calcium 8.8 Total Bilirubin 0.80 AST 14 L ALT 19 Alkaline Phosphatase 62 Troponin I High Sens 5 5 Total Protein 7.1 Albumin 3.9 Globulin 3.2 Albumin/Globulin Ratio 1.2 Urine Color Yellow Urine Clarity Sl. Cloudy Urine pH 8.0 Ur Specific [place] 1.015 Urine Protein Negative Urine Glucose (UA) Normal Urine Ketones Negative Urine Occult Blood Negative Urine Nitrite Negative Urine Bilirubin Negative Urine Urobilinogen 1 H Ur Leukocyte Esterase Negative Urine Test Negative Radiography Diagnostic Testing: Clinical Impression(s) from Imaging Studies Chest X-Ray 03/19/24 07:40 IMPRESSION: Normal x-ray examination of the chest. Electronically Signed: Marco Thrasher MD at 8:15 EDT , Brain CT 03/19/24 07:43 IMPRESSION: Normal unenhanced CT scan of the brain. Electronically Signed: Benny Sharp MD at 8:32 EDT , Discharge Plan Triage Chief Complaint: Hypertension ED Provider: You Delgado Dx/Rx/DC Orders Instructions: ED High Blood Pressure Hypertension Prescriptions: New amlodipine [Norvasc] 10 mg tablet 10 mg PO DAILY Qty: 30 0RF No Action modafinil 200 mg tablet 200 mg PO DAILY Patient Comments: TAKE 1 TABLET BY MOUTH DAILY IN THE MORNING AND 1 TABLET MIDDAY Xywav 0.5 gram/mL solution 1.8 g PO BID Rx Instructions: administer the first dose at bedtime and the second dose 2.5-4 hours later naproxen 500 MG tablet 500 mg PO BID PRN Qty: 20 0RF duloxetine 30 MG capsule 30 mg PO DAILY Stand Alone Forms: ED Work / School Excuse Primary Care Provider: Cora Wu Referrals: Cora Wu DO [Primary Care Provider] - Activity Restrictions/Additional Instructions: Thank you for trusting us with your care today! Please take Tylenol (2 pills, 650 mg), ibuprofen (2 pills, 400 mg) every 6 hours as needed for pain and fever control. Please increase Norvasc (amlodipine) from 5 mg to 10 mg. Please return to the emergency department if your symptoms change or worsen. Specifically develop severe headache, severe chest pain, decreased urination, abdominal pain, focal loss of sensation, weakness, or loss sensation. Please follow with your primary care physician for further outpatient evaluation and management. Print Language: [place]ian Disposition Disposition: Home, Self Care
[2024-03-19] MEDS: 0.9% Normal Saline (500mL Bag) 500 ML 1000 ML IV (07:31)
[2024-03-19 07:39] LABS: Absolute Lymphocyte Count 3.02 X10^3/uL (0.83-4.51); Basophil# 0.04 X10^3/uL; Basophil% 0.5 % (0-1); Eosinophil# 0.16 X10^3/uL; Eosinophils% 2.1 % (0-5); Hemoglobin 14.6 g/dL (12.0-15.0); Lymphocyte # 3.02 X10^3/ul (0.83-4.51); Mean Corp Hgb Conc 33.2 g/dL (32-36); Mean Corpuscular Hgb 29.1 pg (27.0-32.0); Mean Corpuscular Volume 87.8 fL (81-99); Mean Platelet Vol. 10.5 fl (6.2-12.0); Monocyte# 0.52 X10^3/uL; Monocyte% 6.7 % (0-10); NRBC Flagged by Analyzer 0 % (0-5); Neutrophil % 51.6 % (47-70); Platelet Count 317 K/mm3 (150-450); RBC Distribution Width CV 12.4 % (11.6-14.6); RBC Distribution Width SD 40.2 fl (35.1-43.9); Red Blood Count 5.01 M/mm3 (4.2-5.4); White Blood Count 7.8 K/mm3 (4.4-11.0)
--- NOTE | 2024-03-19 07:40 | RAD_ITS ---
STUDY: X-RAY CHEST REASON FOR EXAM: Female, 38 years old. Hypertension TECHNIQUE: Single AP portable view of the chest. COMPARISON: Comparison is made with prior study dated November 08, 2006. FINDINGS: EKG electrodes are seen. The lungs are clear and expanded. There is no demonstrated pleural abnormality. Normal size heart. Normal mediastinum and ene. Normal visualized pulmonary arteries. Normal visualized aortic arch and descending thoracic aorta. Normal visualized thoracic spine. Normal visualized ribs, clavicles, and shoulders. There is no demonstrated abnormality of the visualized soft tissue structures of the upper abdomen. RAD/Chest 1 View (Portable) IMPRESSION: Normal x-ray examination of the chest. Electronically Signed: Marco Thrasher MD at 8:15 EDT ,
--- NOTE | 2024-03-19 07:43 | CT_ITS ---
STUDY: CT BRAIN WITHOUT CONTRAST REASON FOR EXAM: Female, 38 years old. hypertension r/o ICH RADIATION DOSAGE (If Supplied By Facility): CTDIvol = ( 44.99 ) mGy, DLP = ( 796.11 ) mGycm TECHNIQUE: Transaxial CT imaging of the brain was performed without administration of intravenous contrast material. Individualized dose optimization techniques were used for this CT. COMPARISON: 03/27/2013 FINDINGS: Normal soft tissue structures. Normal calvarium. Normal size ventricles and extra-axial spaces for the patient''s age. Normal white matter tracts of the cerebral hemispheres. Normal basal ganglia and thalami. Normal brainstem. Normal cerebellum. There is no intracranial hemorrhage. There are no findings of an acute ischemic infarction. Normal visualized paranasal sinuses. CT/Brain/Head without Contrast IMPRESSION: Normal unenhanced CT scan of the brain. Electronically Signed: Benny Sharp MD at 8:32 EDT ,
[2024-03-19 08:01] LABS: ALB/GLOB Ratio 1.2 RATIO (0.9-2.4); AST(SGOT) 14 U/L (15-37); Alanine Aminotransfer ALT/SGPT 19 U/L (13-56); Albumin, Serum 3.9 g/dL (3.2-5.0); Alkaline Phosphatase 62 U/L (45-117); Anion Gap 4 (5-15); BUN 10 mg/dL (7-18); BUN/Creat Ratio 11.1 RATIO (10-20); Calcium,Total 8.8 mg/dL (8.5-10.1); Chloride 108 mmol/L (98-107); EST Glomerular Filtration Rate 73 mL/min (>60); Est Glom Filt Rate - Afr Amer 89 mL/min (>60); Estimated Creatinine Clearance 99.28 ml/min; Globulin 3.2 g/dL (2.2-4.2); Glucose 108 mg/dL (74-106); Potassium 4.2 mmol/L (3.5-5.1); Protein, Total 7.1 g/dL (6.4-8.2); Sodium Level 141 mmol/L (136-145); Troponin-I HS 5 pg/mL (3.0-54.0)
[2024-03-19] MEDS: Famotidine 200 MG/20 ML MDV 20 MG in 0.9% Normal Saline (Pres. free 8 ML 300 MG IV (08:17)
[2024-03-19] MEDS: Ondansetron 4 MG/2 ML Vial IV (08:17)
[2024-03-19 08:23] VITALS: BP 150/105
[2024-03-19 08:51] LABS: Color, Urine Yellow (Yellow); Glucose, Dipstick Normal (Normal); Ketone-Dipstick Negative (Negative); Leukocyte Esterase-Dipstick Negative /ul (Negative); Nitrite-Dipstick Negative (Negative); Occult Blood-Urine Negative /ul (Negative); Protein-Dipstick Negative (Negative); Specific Gravity, Urine 1.015 (1.002-1.030); Troponin-I HS 5 pg/mL (3.0-54.0); Urine Bilirubin Dipstick Negative (Negative); Urine Clarity Sl. Cloudy (Clear); Urine Urobilinogen 1 mg/dl (Normal)
[2024-03-19 08:52] LABS: Internal QC Validated? YES +Cl - CLEAR BKGD; Pregnancy, Urine Negative Negative; Record Kit Lot#,Urine Preg HCG0000772476
[2024-03-19] MEDS: amLODIPine 5 MG Tablet PO (09:02)
[2024-03-19 09:30] VITALS: BP 126/79; PULSE 75; RESP 18; TEMP 36.6; O2SAT 98
== END 2024-03-19 09:31 | disposition home or self-care (01) ==
PROVIDERS: Emergency Provider Emergency Medicine; PCP Internal Medicine; Visit Provider Emergency Medicine
DX: I10 Essential (primary) hypertension (principal); J45.909 Unspecified asthma, uncomplicated
CPT/HCPCS: 70450; 71045; 80053; 81002; 81025; 84484; 85025; 93005; 96361; 96374; 96375; 99284; J7030; A4216; J2405; J3490